=== PATIENT | female | born 1995 | race American Indian/Alaskan Native ===

== ENCOUNTER 2017-07-29 21:15 | Outpatient (CLI) | payer MEDICAID ==
[2017-07-29] MEDS ORDERED: LACTATED RINGERS 500 ML IV ONE (21:25)
[2017-07-29 21:32] VITALS: BP 119/64
[2017-07-29] MEDS ORDERED: LACTATED RINGERS 1,000 ML IV ONE (21:47)
[2017-07-29 22:56] LABS: Bilirubin,Urine NEG (Negative); Blood,Urine NEG (Negative); Ketones,Urine NEG (Negative); Leukocyte Esterase,Urine LG (Negative); Mucus,Urine FEW /HPF; Nitrite,Urine NEG (Negative); Protein,Urine <15 mg/dL mg/dL (Negative); Urobilinogen,Urine < 2.0 mg/dL (<2.0)
[2017-07-29] MEDS ORDERED: VISTARIL PO ONE (23:14)
== END 2017-07-29 23:25 | disposition home or self-care (01) ==
LOC: TRG 21:15
PROVIDERS: ATTEND Obstetrics & Gynecology
DX: O62.9 Abnormality of forces of labor, unspecified (principal); Z87.891 Personal history of nicotine dependence; Z3A.36 36 weeks gestation of pregnancy
CPT/HCPCS: 81001; 96360; Q0177

== ENCOUNTER 2017-08-04 11:58 | Outpatient (CLI) | payer MEDICAID ==
[2017-08-04] MEDS ORDERED: TYLENOL PO ONE (12:06)
[2017-08-04] MEDS ORDERED: LACTATED RINGERS 1,000 ML IV ONE (12:06)
[2017-08-04 12:21] VITALS: BP 113/68
[2017-08-04] MEDS ORDERED: BICITRA PO ONE (12:21)
[2017-08-04 13:22] LABS: Bacteria,Urine 1+ /HPF (Negative); Bilirubin,Urine NEG (Negative); Blood,Urine NEG (Negative); Ketones,Urine NEG (Negative); Leukocyte Esterase,Urine LG (Negative); Nitrite,Urine NEG (Negative); Protein,Urine <15 mg/dL mg/dL (Negative); Urobilinogen,Urine < 2.0 mg/dL (<2.0)
== END 2017-08-04 14:15 | disposition home or self-care (01) ==
LOC: TRG 11:58
PROVIDERS: ATTEND Obstetrics & Gynecology
DX: O47.03 False labor before 37 completed weeks of gestation, third trimester (principal); Z87.891 Personal history of nicotine dependence; Z3A.33 33 weeks gestation of pregnancy
CPT/HCPCS: 59025; 81001; J7120

== ENCOUNTER 2017-08-22 03:59 | Outpatient (CLI) | payer MEDICAID ==
[2017-08-22] MEDS ORDERED: VISTARIL PO ONE (05:06)
== END 2017-08-22 05:19 | disposition home or self-care (01) ==
LOC: TRG 03:59
PROVIDERS: ATTEND Obstetrics & Gynecology
DX: O62.9 Abnormality of forces of labor, unspecified (principal); Z3A.36 36 weeks gestation of pregnancy
CPT/HCPCS: 59025; Q0177

== ENCOUNTER 2017-09-10 09:37 | Outpatient (CLI) | payer MEDICAID ==
[2017-09-10 10:34] VITALS: BP 123/81
[2017-09-10] MEDS ORDERED: LACTATED RINGERS 1,000 ML IV SCH (11:00)
[2017-09-10 11:21] LABS: Bilirubin,Urine Negative (Negative); Blood,Urine Negative (Negative); Ketones,Urine 25 mg/dL (Negative)
[2017-09-10 11:22] LABS: Leukocyte Esterase,Urine Trace (Negative); Nitrite,Urine Negative (Negative); Urobilinogen,Urine < 2.0 mg/dL (<2.0)
[2017-09-10 11:26] LABS: Mucus,Urine 1+ /HPF
[2017-09-10 11:27] LABS: Basophils % (Auto) 0.6 % (0.0-1.8); Eosinophils % (Auto) 0.9 % (0.0-4.3); Hematocrit 39.5 % (30.3-42.9); Hemoglobin 12.8 gm/dl (10.1-14.3); Mean Corpuscular HGB Conc 32 % (30-34); Mean Corpuscular Hemoglobin 28 pg (28-32); Mean Corpuscular Volume 88 fl (79-97); Platelet Count 266 K/mm3 (140-440); Red Blood Count 4.51 M/mm3 (3.65-5.03); White Blood Count 10.1 K/mm3 (4.5-11.0)
--- NOTE | 2017-09-10 13:41 | Ultrasound Report ---
BIOPHYSICAL PROFILE: 2 - breathing movements 2 - movements 2 - posture and tone 2 - Qualitative amniotic fluid volume 8 - TOTAL SCORE OF POSSIBLE 8 Heart Rate (bpm) 125
--- NOTE | 2017-09-10 13:47 | Ultrasound Report ---
Gestation: single Position: cephalic Amniotic Fluid: WNL RANDY = 14.4 cm Placenta: posterior Placental Grade: 2 Heart Rate: 125 BPM BPD 8.6 cm = 34 w 4 d HC: 31.9 cm = 35 w 6 d AC: 32.7 cm = 36 w 4 d FL: 6.9 cm = 35 w 1 d HC/AC Ratio: 0.98 Cephalic Index: 82.9 Estimated Weight: 2803 grams Clinical age = 39 w 0 d EDC: 09/17/17 US Gest. Age = 35 w 4 d EDC: 10/11/17
== END 2017-09-10 13:35 | disposition home or self-care (01) ==
LOC: TRG 09:37
PROVIDERS: ATTEND Obstetrics & Gynecology
DX: O47.1 False labor at or after 37 completed weeks of gestation (principal); Z3A.39 39 weeks gestation of pregnancy
CPT/HCPCS: 36415; 59025; 76816; 76819; 81001; 85025; 96360; 96361; J7120

== ENCOUNTER 2017-09-11 19:15 | Inpatient (IN) | payer MEDICAID ==
[2017-09-11] MEDS ORDERED: LACTATED RINGERS 1,000 ML ONE (19:57)
[2017-09-11] MEDS ORDERED: POLYCILLIN/NS 2 GM/100 ML 2 GM/100 ML BAG IV ONE (19:57)
[2017-09-11] MEDS ORDERED: BRETHINE SUB-Q PRN (20:20)
[2017-09-11] MEDS ORDERED: ePHEDrine SULFATE IV PRN (20:20)
[2017-09-11] MEDS ORDERED: BRETHINE IVP PRN (20:20)
[2017-09-11] MEDS ORDERED: XYLOCAINE 2% INFILTRATI ONE (20:20)
[2017-09-11] MEDS ORDERED: ZOFRAN IV PRN (20:20)
[2017-09-11] MEDS ORDERED: MINERAL OIL PO PRN (20:20)
--- NOTE | 2017-09-11 20:25 | History and Physical Report ---
History of Present Illness Date of examination: 09/11/17 (pt presents in active labor) Date of admission: 09/11/17 19:59 Past History - Obstetrical History Expected Date of Delivery: 09/17/17 Actual Gestation: 39 Week(s) 1 Day(s) : 1 Para: 0 Number of Living Children: 0 Medications and Allergies Allergies Allergy/AdvReac Type Severity Reaction Status Date / Time No Known Allergies Allergy Verified 08/04/17 12:02 Home Medications Medication Instructions Recorded Confirmed Last Taken Type Vit-Fe Fumar-FA [ 1 tab PO QDAY 08/04/17 09/10/17 08/04/17 09: 00 History Vitamin] 1 Active Meds: Active Medications Lactated Ringer's (Lactated Ringers) 1,000 mls @ 125 mls/hr IV DIRECT RAYMOND - Physical Exam Breasts: Positive: deferred Cardiovascular: Regular rate, Normal S1, Normal S2 Lungs: Positive: Normal air movement Abdomen: Positive: normal appearance, soft, normal bowel sounds. Negative: distention, tenderness Genitourinary (Female): Positive: normal external genitalia Vulva: both: normal Vagina: Positive: normal moisture. Negative: discharge Cervix: Negative: lesion, discharge Uterus: Positive: normal size, normal contour Adnexa: both: normal Anus/Rectum: Positive: normal perianal skin, heme negative. Negative: rectal mass, hemorrhoids Extremities: Deep Tendon Reflex Grade: Normal +2 - Obstetrical FHR: category 1 Uterine Contraction Monitor Mode: External Cervical Dilatation: 5.5 (BBOW) Cervical Effacement Percentage: 100 (Exam per RN) station: 0 Uterine Contraction Pattern: Regular Uterine Contraction Intensity: Moderate Results All other labs normal. Strep Gp B ISRA [A] Positive HBsAg Screen Negative Negative *1 Rubella Antibodies, IgG 4.53 index Immune >0.99 *2 Non-immune <0.90 Equivocal 0.90 - 0.99 Immune >0.99 ABO Grouping O *3 Rh Factor Positive *4 Please note: Prior records for this patient's ABO / Rh type are not available for additional verification. Antibody Screen Negative Negative *5 RPR Non Reactive Non Reactive *6 WBC 10.0 x10E3/uL 3.4-10.8 *7 RBC [L] 3.25 x10E6/uL 3.77-5.28 *8 Hemoglobin [L] 8.8 g/dL 11.1-15.9 *9 Hematocrit [L] 27.5 % 34.0-46.6 *10 MCV 85 fL 79-97 *11 MCH 27.1 pg 26.6-33.0 *12 MCHC 32.0 g/dL 31.5-35.7 *13 RDW 13.0 % 12.3-15.4 *14 Platelets 313 x10E3/uL 150-379 *15 Neutrophils 78 % Not Estab. *16 Lymphs 13 % Not Estab. *17 Monocytes 6 % Not Estab. *18 Eos 2 % Not Estab. *19 Basos 0 % Not Estab. *20 ! Immature Cells <No Reported Value> *21 Neutrophils (Absolute) [H] 7.8 x10E3/uL 1.4-7.0 *22 Lymphs (Absolute) 1.3 x10E3/uL 0.7-3.1 *23 Monocytes(Absolute) 0.6 x10E3/uL 0.1-0.9 *24 Eos (Absolute) 0.2 x10E3/uL 0.0-0.4 *25 Baso (Absolute) 0.0 x10E3/uL 0.0-0.2 *26 ! Immature Granulocytes 1 % Not Estab. *27 ! Immature Grans (Abs) 0.1 x10E3/uL 0.0-0.1 *28 ! NRBC <No Reported Value> *29 Hematology Comments: <No Reported Value> *30 Tests: (2) Cystic Fibrosis Profile (021391) ! CF, Screen Comment: *31 RESULTS: Negative for 32 mutations analyzed Tests: (3) HB Solu + Rflx [facility] (583933) Hemoglobin (Hgb) Solubility Negative Negative *34 Tests: (4) Panel 458773 (734007) HIV Screen 4th Generation wRfx Non Reactive Non Reactive *35 Tests: (5) Gest. Diabetes 1-Hr Screen (645935) ! Gestational Diabetes Screen 123 mg/dL 65-139 *36 According to ADA, a glucose threshold of >139 mg/dL after 50-gram load identifies approximately 80% of women with gestational diabetes mellitus, while the sensitivity is further increased to approximately 90% by a threshold of >129 mg/dL. Tests: (6) HCV Ab w/Rflx to Verification (248611) ! HCV Ab <0.1 s/co ratio 0.0-0.9 *37 Tests: (7) Comment: (636267) ! Comment: SPRCS *38 Non reactive HCV antibody screen is consistent with no HCV infection, unless recent infection is suspected or other evidence exists to indicate HCV infection. Tests: (8) Urine Culture, Routine (022134) Urine Culture, Routine Final report *39 Tests: (9) Result (054553) ! Result 1 MUG *40 Mixed urogenital jeffrey 10,000-25,000 colony forming units per mL Assessment and Plan - Patient Problems (1) Group B Streptococcus carrier state affecting Onset Date: ~09/11/17 Current Visit: Yes Status: Acute Plan to address problem: Will treat per protocol (2) Active labor Onset Date: ~09/11/17 Current Visit: Yes Status: Acute Plan to address problem: 21yo @ 39 weeks in active labor GBS+ Orders in EMR. Anticipate delivery
[2017-09-11] MEDS: LACTATED RINGERS 1,000 ML IV SCH ×2 (20:35→22:01)
[2017-09-11 20:36] LABS: Hematocrit 36.2 % (30.3-42.9); Hemoglobin 11.9 gm/dl (10.1-14.3); Mean Corpuscular HGB Conc 33 % (30-34); Mean Corpuscular Hemoglobin 28 pg (28-32); Mean Corpuscular Volume 86 fl (79-97); Platelet Count 278 K/mm3 (140-440); Red Cell Distribution Width 18.5 % (13.2-15.2); White Blood Count 10.7 K/mm3 (4.5-11.0)
[2017-09-11] MEDS: SUBLIMAZE IV PRN ×2 (20:50→21:57)
[2017-09-11] MEDS ORDERED: LACTATED RINGERS 1,000 ML IV SCH (21:00)
[2017-09-11] MEDS ORDERED: PITOCin/NS 20 UNIT/1000ML DRIP 20 UNITS/1,000 ML BAG IV SCH (21:00)
[2017-09-11] MEDS ORDERED: ceFAZolin 2 GM in NACL 0.9% 100 ML IV ONE (21:00)
[2017-09-11] MEDS ORDERED: PITOCin/NS 30 UNIT/500ML 30 UNITS/500 ML BAG IV SCH (21:00)
[2017-09-11] MEDS ORDERED: fentaNYL-BUPIV 2 MCG/ML-0.125% 0 MCG/0 ML BAG EPIDURAL ONE (21:43)
[2017-09-11] MEDS ORDERED: POLYCILLIN/NS 1 GM/50 ML 1 GM/50 ML BAG IV SCH (22:00)
[2017-09-11] MEDS ORDERED: LANSINOH TP PRN ×2 (22:39)
[2017-09-11] MEDS ORDERED: DERMOPLAST TP PRN (22:39)
[2017-09-11] MEDS ORDERED: TUCKS PAD TP PRN (22:39)
[2017-09-11] MEDS ORDERED: TYLENOL PO PRN (22:39)
[2017-09-11] MEDS ORDERED: BENADRYL PO PRN (22:39)
[2017-09-11] MEDS ORDERED: DULCOLAX PR PRN (22:39)
[2017-09-11] MEDS ORDERED: PHENERGAN PO PRN (22:39)
[2017-09-11] MEDS ORDERED: PERCOCET 5/325 PO PRN (22:39)
[2017-09-11] MEDS ORDERED: MILK OF MAGNESIA PO PRN (22:39)
--- NOTE | 2017-09-11 22:49 | Procedure Note ---
OB Delivery Note - Delivery Date of Delivery: 09/11/17 Laryngologist: MATTHEW NAVARRO Estimated blood loss: other (400cc) - Vaginal Delivery presentation: vertex Delivery position: OA Intrapartum events: other(please specify) (+GBS only one dose Ampicillin) Delivery induction: none Delivery augmentation: pitocin Delivery monitor: external FHT, external uterine Route of delivery: Delivery placenta: spontaneous Delivery cord: nuchal cord, 3 umbilical vessels Episiotomy: none Delivery laceration: 2nd degree, other (left labia X 2 sites) Delivery repair: vicryl Anesthesia: local Delivery comments: live born female over intact perineum CAN X 1 delivered through. Baby skin to skin Cord blood obtained Placenta and membrane delivered complete and intact , 3 vessel cord. Second degree laceration and left labial tear in [address]. Repaired with 2-0 vicryl over lidocaine in usual fashion. 8/9, EBL 400, Wgt 6-8. Mom and baby remain LDR stable. - A at 1 minute: 8 at 5 minutes: 9 Infant Gender: Female (wgt 6-8)
[2017-09-11] MEDS ORDERED: SODIUM CHLORIDE FLUSH SYRINGE 10 ML IV NR (23:00)
[2017-09-12] MEDS: MOTRIN PO SCH ×5 (00:05→23:39)
[2017-09-12 05:10] LABS: Hematocrit 31.9 % (30.3-42.9); Hemoglobin 10.7 gm/dl (10.1-14.3)
[2017-09-12] MEDS ORDERED: BOOSTRIX IM ONE (06:00)
[2017-09-12] MEDS ORDERED: M-M-R II VACCINE SUB-Q ONE (06:00)
--- NOTE | 2017-09-12 08:32 | Progress Note ---
Assessment and Plan - Patient Problems (1) Spontaneous vaginal delivery Current Visit: Yes Status: Acute Plan to address problem: -routine pp care -d/c home in am Subjective - Subjective Date of service: 09/12/17 Principal diagnosis: PPD #1 s/p Interval history: Pt doing well . no c/o. Patient reports: appetite normal, voiding normally, pain well controlled, no dizzy ambulation [place]: doing well, bottle feeding Objective - Vital Signs Latest vital signs: Vital Signs Temp Pulse Resp BP BP 09/12/17 04:44 16 09/12/17 00:30 98.6 F 66 16 116/71 09/12/17 00:05 16 09/12/17 00:01 83 118/74 09/11/17 23:46 88 113/72 09/11/17 23:38 86 120/73 09/11/17 23:17 94 H 142/80 09/11/17 23:01 93 H 118/73 09/11/17 22:46 93 H 122/78 09/11/17 22:35 98.5 F 20 09/11/17 22:31 104 H 133/87 09/11/17 22:30 107 H 133/86 09/11/17 22:00 90 125/92 09/11/17 21:57 20 09/11/17 21:30 90 124/78 09/11/17 21:01 95 H 111/73 09/11/17 20:50 18 09/11/17 20:00 99.4 F Intake and Output 09/11/17 09/12/17 09/12/17 22:59 06:59 14:59 Intake Total 182.767 Output Total 1900 Balance 182.767 -1900 Intake: IV 182.767 Lactated Ringers 1,000 ml 179.167 @ 125 mls/hr IV DIRECT RAYMOND Rx#:[id number] PITOCin/NS 30 UNIT/500ML 3.6 30 units In 500 ml @ 4 mls/hr IV Q30MIN RAYMOND Rx#: [id number] Output: Urine 1900 Void 1900 Other: Total, Output Amount 800 # Voids Void 1 Weight 61.689 kg Estimated Blood Loss 400 - Exam Lungs: Present: Normal air movement Abdomen: Present: normal appearance, soft, normal bowel sounds. Absent: distention, tenderness, guarding Uterus: Present: fundal height below umbilicus Extremities: Present: normal. Absent: tenderness, edema - Labs Labs: Abnormal lab results 09/11/17 Range/Units 20:00 RDW 18.5 H (13.2-15.2) %
[2017-09-12] MEDS: PRENATAL VITAMIN PO SCH (11:14)
[2017-09-12] MEDS: COLACE PO SCH ×2 (11:15→22:10)
[2017-09-12] MEDS: NORCO 5/325 PO PRN (17:34)
[2017-09-13] MEDS: MOTRIN PO SCH ×2 (05:43→12:56)
--- NOTE | 2017-09-13 07:44 | Discharge Summary ---
Providers - Providers Date of Admission: 09/11/17 19:59 Date of discharge: 09/13/17 (pt agrees with d/c) Attending physician: MAGO KANG 09/11/17 Consult to Case Management [CONS] Routine Services Needed at Discharge: Command And Control Specialist Primary care physician: MAGO KANG Hospitalization Reason for admission: active labor Delivery: Episiotomy: none Laceration: 2nd degree Incision: normal, dry, intact Other procedures: none complications: none Discharge diagnosis: IUP at term delivered [place] baby: female Hospital course: uncomplicated vaginal delivery pt w/o complaint Decided to bottle feed VSS FF below umb Lochia small Perineum slight swelling intact - ajith care reviewed by myself and the RN. H&H stable No s/sx of anemia. Doing well s/p vag delivery P: d/c today with instructions RTO 4 weeks PP care Depo prior to d/c RX provided. Condition at discharge: Good Disposition: DC-01 TO HOME OR SELFCARE - Discharge Diagnoses (1) Spontaneous vaginal delivery Status: Acute Comment: rto 4 weeks for PP care Plan - Discharge Medications Prescriptions: Docusate Sodium [Colace] 100 mg PO BID PRN #60 capsule PRN Reason: Constipation Ferrous Sulfate [Feosol 325 MG tab] 325 mg PO BID #60 tablet Ibuprofen [Motrin 800 MG tab] 800 mg PO TID PRN #30 tablet PRN Reason: Pain - Provider Discharge Summary Activity: routine, no sex for 6 weeks, no heavy lifting 4 weeks, no strenuous exercise Diet: routine Instructions: routine Additional instructions: [] Smoking cessation referral if applicable(refer to patient education folder for contact #) [] Refer to [facility] Booklet Call your doctor immediately for: * Fever > 100.5 * Heavy vaginal bleeding ( >1 pad per hour) * Severe persistent headache * Shortness of breath * Reddened, hot, painful area to leg or breast * Drainage or odor from incision. * Keep incision clean and dry at all times and follow doctor's instructions regarding bathing/showering - Follow up plan Follow up: MAGO KANG MD [Primary Care Provider] - 10/13/17 (Congratulations! Happy Thanksgiving! Please call [phone] to schedule your visit in 4 weeks. Take medications as prescribed. Call with any concerns.)
[2017-09-13] MEDS ORDERED: DEPO-PROVERA (CONTRACEPTION) IM ONE ×2 (07:45→20:00)
[2017-09-13 09:38] VITALS: BP 116/79
[2017-09-13] MEDS: COLACE PO SCH (12:55)
[2017-09-13] MEDS: PRENATAL VITAMIN PO SCH (12:55)
[2017-09-13] MEDS: NORCO 5/325 PO PRN (12:57)
== END 2017-09-13 21:00 | disposition home or self-care (01) | DRG 775 ==
LOC: TRG 19:15 → LD 19:51 → TRG 19:59 → OB 09-12
PROVIDERS: ADMIT Obstetrics & Gynecology; ATTEND Obstetrics & Gynecology
PROC: 10E0XZZ Delivery of Products of Conception, External Approach (ICD-10-PCS; principal; 2017-09-11)
PROC: 0KQM0ZZ Repair Perineum Muscle, Open Approach (ICD-10-PCS; 2017-09-11)
PROC: 3E0234Z Introduction of Serum, Toxoid and Vaccine into Muscle, Percutaneous Approach (ICD-10-PCS; 2017-09-12)
DX: O99.824 Streptococcus B carrier state complicating childbirth (principal); O69.81X0 Labor and delivery complicated by cord around neck, without compression, not applicable or unspecified; O70.1 Second degree perineal laceration during delivery; Z3A.39 39 weeks gestation of pregnancy; Z37.0 Single live birth; Z23 Encounter for immunization
CPT/HCPCS: 36415; 85014; 85018; 85027; 86592; 86850; 86900; 86901; 90715; J0290; J0690; J1050; J2590; J3010; J7120